=== PATIENT | male | born 1965 | race Caucasian/White ===

== ENCOUNTER 2024-04-25 13:46 | Inpatient (IN) | payer BC ==
[~2024-04-25] VITALS: Ht 190.5 cm; Wt 79.5 kg
[2024-04-25] MEDS: normal saline 1000ml 1,000 ML IV SCH (01:00)
[2024-04-25 20:08] LABS: BASOPHILS % (AUTO) 0.1 % (0-1); EOSINOPHILS % (AUTO) 0 % (0-6); HEMATOCRIT 30.5 % (42.0-52.0); HEMOGLOBIN 9.4 g/dl (14.0-17.9); LYMPHOCYTES % (AUTO) 8.6 % (21-51); MEAN CORPUSCULAR HEMOGLOBIN 25.3 PG (27.0-31.0); MEAN CORPUSCULAR HGB CONC 30.8 g/dL (33.0-36.5); MEAN CORPUSCULAR VOLUME 82.1 FL (78-98); MEAN PLATELET VOLUME 6.6 FL (7.4-10.4); MONOCYTES # (AUTO) 0.7 X10'3 (0-0.9); MONOCYTES % (AUTO) 6.2 % (2-12); NEUTROPHILS # (AUTO) 10.1 X10'3 (1.8-7.7); NEUTROPHILS % (AUTO) 85.1 % (42-75); PLATELET COUNT 305 X10'3 (140-440); RED BLOOD COUNT 3.71 X10'6 (4.70-6.10); RED CELL DISTRIBUTION WIDTH 20.5 % (11.5-14.5); WHITE BLOOD COUNT 11.9 X10'3 (4.5-11.0)
[2024-04-25 20:27] LABS: APTT 26 SECONDS (22-32); D-DIMER 6.05 MG/L FEU (0-0.50); PROTHROMBIN TIME 10.6 SECONDS (9.0-12.0)
[2024-04-25 20:29] LABS: ALBUMIN 1.5 G/DL (3.4-5.0); ANION GAP 5 (8-16); BLOOD UREA NITROGEN 10 MG/DL (7-18); CALCIUM 8.1 MG/DL (8.5-10.1); CHLORIDE 101 MMOL/L (99-107); CREATININE 0.91 MG/DL (0.60-1.10); GLUCOSE 99 MG/DL (70-104); POTASSIUM 3.9 MMOL/L (3.5-5.1); PRO BRAIN NATRIURETIC PEPTIDE 1913 PG/ML (0-125); SODIUM 132 MMOL/L (135-145); TOTAL CARBON DIOXIDE 25.8 MMOL/L (24-32); eCRCL 97 ML/MIN; eGFR 85 ML/MIN
[2024-04-25] MEDS ORDERED: iohexol 350MG/ML 100ml bottle IV ONE (20:40)
[2024-04-25 21:08] LABS: OCCULT BLOOD STOOL POSITIVE (Neg)
[2024-04-25 21:47] LABS: ANISOCYTOSIS 3+; HYPOCHROMASIA 1+; PLATELET ESTIMATE NORMAL
[2024-04-25] MEDS ORDERED: heparin 10,000 units/1 ML INJ IV ONE (22:30)
[2024-04-25 22:58] LABS: BILIRUBIN,URINE NEGATIVE (Neg); CLARITY,URINE CLOUDY (Clear); COLOR,URINE YELLOW (Yellow); GLUCOSE, URINE NEGATIVE (Neg); KETONES,URINE NEGATIVE (Neg); LEUKOCYTE ESTERASE ,URINE MODERATE (Neg); NITRITES, URINE POSITIVE (Neg); OCCULT BLOOD,URINE LARGE (Neg); PH,URINE 6.5 (4.8-8.0); PROTEIN,URINE 100 mg/dl (Neg); UROBILINOGEN,URINE 0.2 E.U/dL (0.2-1.0)
[2024-04-25 23:00] LABS: UA COLLECTION TYPE CLN CATCH MIDSTREAM
[2024-04-25 23:10] LABS: BACTERIA,URINE 4+ /HPF (Neg); SQUAMOUS EPITHELIAL CELL,UR FEW /LPF (FEW); WBC,URINE TNTC /HPF (0-4)
[2024-04-25 23:13] LABS: MUCUS STRANDS NONE SEEN /LPF (Neg); RBC,URINE 50-100 /HPF (0-2)
[2024-04-25 23:14] LABS: WBC CLUMPS,URINE MANY /HPF (NEGATIVE)
[2024-04-25] MEDS ORDERED: magnesium 2GM in 50ml NS 50 ML IV PRN (23:20)
[2024-04-25] MEDS ORDERED: magnesium 4gm in 100ml NS 100 ML IV PRN (23:20)
[2024-04-25] MEDS ORDERED: acetaminophen 325mg tablet PO PRN (23:20)
[2024-04-25] MEDS ORDERED: magnesium Cl slow-release 64mg tablet PO PRN (23:20)
[2024-04-25] MEDS ORDERED: potassium Cl 20 mEq SR tablet PO PRN (23:20)
[2024-04-25] MEDS: PERFLUTREN PROTEIN-A MICROSPHR (Optison) 0.22 MG/ML 3ML VIAL IV ONE (23:54)
[2024-04-26] VITALS (8 sets, daily range): BP systolic 92–109; BP diastolic 51–89; PULSE 76–90; RESP 16–25; TEMP 96.5–100.9; O2SAT 93–100
[2024-04-26] MEDS: heparin 10,000 units/1 ML INJ IV ONE (00:33)
[2024-04-26] MEDS: heparin 25,000 UNIT/250ml bag 250 ML IV PRN (00:36)
[2024-04-26] MEDS: MESSAGE TO NURSING IV ONE ×4 (00:37→21:30)
[2024-04-26 07:20] LABS: BASOPHILS # (AUTO) 0.1 X10'3 (0-0.2); BASOPHILS % (AUTO) 0.5 % (0-1); EOSINOPHILS % (AUTO) 0.4 % (0-6); HEMATOCRIT 26.8 % (42.0-52.0); HEMOGLOBIN 8.3 g/dl (14.0-17.9); LYMPHOCYTES # (AUTO) 1.7 X10'3 (1.1-4.8); LYMPHOCYTES % (AUTO) 15.4 % (21-51); MEAN CORPUSCULAR HEMOGLOBIN 25.1 PG (27.0-31.0); MEAN CORPUSCULAR HGB CONC 30.9 g/dL (33.0-36.5); MEAN CORPUSCULAR VOLUME 81.1 FL (78-98); MEAN PLATELET VOLUME 6.9 FL (7.4-10.4); MONOCYTES # (AUTO) 0.8 X10'3 (0-0.9); MONOCYTES % (AUTO) 7.7 % (2-12); NEUTROPHILS # (AUTO) 8.1 X10'3 (1.8-7.7); PLATELET COUNT 282 X10'3 (140-440); RED CELL DISTRIBUTION WIDTH 20.9 % (11.5-14.5); WHITE BLOOD COUNT 10.7 X10'3 (4.5-11.0)
[2024-04-26 07:31] LABS: % IRON SATURATION 7 % (11-46); IRON 8 UG/DL (53-167); TOTAL IRON BINDING CAPACITY 113 UG/DL (259-388)
[2024-04-26 07:42] LABS: MAGNESIUM 2.1 MG/DL (1.5-2.4); POTASSIUM 3.5 MMOL/L (3.5-5.1)
[2024-04-26] MEDS: K and/or MAG REPLACEMENT MC SCH (08:00)
[2024-04-26] MEDS: heparin 10,000 units/1 ML INJ IV PRN (08:07)
[2024-04-26] MEDS: furosemide 10 MG/1 ML 10ml inj IV SCH (08:13)
[2024-04-26] MEDS: CefTRIAXone/D5W-Rocephin 1gm 50 ML IV SCH (08:18)
[2024-04-26 10:50] LABS: URINE AMPHETAMINE SCREEN NEGATIVE (Neg); URINE BARBITUATE SCREEN NEGATIVE (Neg); URINE BENZODIAZEPINES SCREEN NEGATIVE (Neg); URINE CANNABINOID SCREEN NEGATIVE (Neg); URINE COCAINE SCREEN NEGATIVE (Neg); URINE METHADONE SCREEN NEGATIVE (Neg); URINE PHENCYCLIDINE SCREEN NEGATIVE (Neg)
[2024-04-27] VITALS (8 sets, daily range): BP systolic 97–110; BP diastolic 52–84; PULSE 75–86; RESP 11–18; TEMP 97.4–100.2; O2SAT 94–98
[2024-04-27 02:31] LABS: BASOPHILS % (AUTO) 0.2 % (0-1); EOSINOPHILS % (AUTO) 0 % (0-6); HEMATOCRIT 24.3 % (42.0-52.0); HEMOGLOBIN 7.4 g/dl (14.0-17.9); LYMPHOCYTES # (AUTO) 1.9 X10'3 (1.1-4.8); LYMPHOCYTES % (AUTO) 15.9 % (21-51); MEAN CORPUSCULAR HEMOGLOBIN 24.9 PG (27.0-31.0); MEAN CORPUSCULAR HGB CONC 30.4 g/dL (33.0-36.5); MEAN CORPUSCULAR VOLUME 81.8 FL (78-98); MEAN PLATELET VOLUME 6.7 FL (7.4-10.4); MONOCYTES % (AUTO) 8.5 % (2-12); NEUTROPHILS # (AUTO) 8.9 X10'3 (1.8-7.7); NEUTROPHILS % (AUTO) 75.4 % (42-75); PLATELET COUNT 270 X10'3 (140-440); RED BLOOD COUNT 2.97 X10'6 (4.70-6.10); RED CELL DISTRIBUTION WIDTH 20.7 % (11.5-14.5); WHITE BLOOD COUNT 11.8 X10'3 (4.5-11.0)
[2024-04-27 02:39] LABS: MAGNESIUM 1.8 MG/DL (1.5-2.4); POTASSIUM 3.4 MMOL/L (3.5-5.1)
[2024-04-27] MEDS: MESSAGE TO NURSING IV ONE ×3 (02:50→21:25)
[2024-04-27] MEDS: potassium Cl 20 mEq SR tablet PO PRN (04:08)
[2024-04-27 15:34] LABS: % FREE PSA 8.6 % (.); CARCINOEMBRYONIC ANTIGEN 9.4 ng/mL (0.0-4.7); PROSTATE SPECIFIC AG, SERUM 1.4 ng/mL (0.0-4.0); PSA, FREE 0.12 ng/mL
[2024-04-27] MEDS: PEG 3350/Na sulf,bicarb,Cl/KCl oral sol 4 liter bottle PO ONE (16:53)
[2024-04-27] MEDS: HYDROcodone/acetaminophen 5mg/325mg tablet PO PRN (21:13)
[2024-04-28] VITALS (8 sets, daily range): BP systolic 98–117; BP diastolic 61–73; PULSE 65–101; RESP 13–19; TEMP 97.4–98; O2SAT 96–100
[2024-04-28] MEDS: ondansetron/PF 4mg/2ml inj IV PRN (03:43)
[2024-04-28 04:10] LABS: BASOPHILS % (AUTO) 0.1 % (0-1); EOSINOPHILS % (AUTO) 0.2 % (0-6); HEMATOCRIT 26.9 % (42.0-52.0); LYMPHOCYTES # (AUTO) 2.1 X10'3 (1.1-4.8); MEAN CORPUSCULAR HEMOGLOBIN 24.4 PG (27.0-31.0); MEAN CORPUSCULAR HGB CONC 29.7 g/dL (33.0-36.5); MEAN CORPUSCULAR VOLUME 81.9 FL (78-98); MEAN PLATELET VOLUME 6.6 FL (7.4-10.4); MONOCYTES # (AUTO) 1.1 X10'3 (0-0.9); MONOCYTES % (AUTO) 8.6 % (2-12); NEUTROPHILS # (AUTO) 9.1 X10'3 (1.8-7.7); NEUTROPHILS % (AUTO) 74.1 % (42-75); PLATELET COUNT 307 X10'3 (140-440); RED BLOOD COUNT 3.29 X10'6 (4.70-6.10); RED CELL DISTRIBUTION WIDTH 20.6 % (11.5-14.5); WHITE BLOOD COUNT 12.3 X10'3 (4.5-11.0)
[2024-04-28 04:29] LABS: MAGNESIUM 1.9 MG/DL (1.5-2.4)
[2024-04-28] MEDS: MESSAGE TO NURSING IV ONE ×3 (05:07→21:20)
[2024-04-28 05:31] LABS: ALBUMIN 1.2 G/DL (3.4-5.0); ANION GAP 9 (8-16); BLOOD UREA NITROGEN 9 MG/DL (7-18); BUN/CREATININE RATIO 12.2 (10.0-20.0); CALCIUM 7.7 MG/DL (8.5-10.1); CHLORIDE 101 MMOL/L (99-107); CREATININE 0.74 MG/DL (0.60-1.10); GLUCOSE 101 MG/DL (70-104); POTASSIUM 3.2 MMOL/L (3.5-5.1); SODIUM 136 MMOL/L (135-145); TOTAL CARBON DIOXIDE 26.4 MMOL/L (24-32); eCRCL 119 ML/MIN; eGFR > 90 ML/MIN
[2024-04-28 09:24] LABS: C DIFF ANTIGEN NEGATIVE (NEGATIVE); C DIFF SPECIMEN=DIARRHEA? ACCEPTABLE; C DIFFICILE TOXINS A&B NEGATIVE (Neg)
[2024-04-28] MEDS: potassium Cl 40MEQ/1/2NS 520ml 520 ML IV PRN (15:21)
[2024-04-28] MEDS: sennosides/docusate sodium tablet PO SCH (22:23)
[2024-04-28] MEDS: magnesium citrate 296ml oral solution PO ONE (22:23)
[2024-04-28] MEDS: metoclopramide 5 mg/ml inj IV ONE (22:23)
[2024-04-28] MEDS: polyethylene glycol 3350 17gm powd pack PO SCH (23:42)
[2024-04-29] VITALS (7 sets, daily range): BP systolic 94–127; BP diastolic 60–73; PULSE 72–79; RESP 12–17; TEMP 97–98; O2SAT 92–98
[2024-04-29 03:49] LABS: BASOPHILS % (AUTO) 0.2 % (0-1); EOSINOPHILS % (AUTO) 0.1 % (0-6); HEMOGLOBIN 8.4 g/dl (14.0-17.9); LYMPHOCYTES # (AUTO) 1.5 X10'3 (1.1-4.8); LYMPHOCYTES % (AUTO) 15.4 % (21-51); MEAN CORPUSCULAR HGB CONC 30.9 g/dL (33.0-36.5); MEAN PLATELET VOLUME 6.8 FL (7.4-10.4); MONOCYTES # (AUTO) 0.8 X10'3 (0-0.9); MONOCYTES % (AUTO) 8.3 % (2-12); NEUTROPHILS # (AUTO) 7.2 X10'3 (1.8-7.7); PLATELET COUNT 355 X10'3 (140-440); RED BLOOD COUNT 3.34 X10'6 (4.70-6.10); RED CELL DISTRIBUTION WIDTH 20.3 % (11.5-14.5); WHITE BLOOD COUNT 9.6 X10'3 (4.5-11.0)
[2024-04-29 03:59] LABS: ALBUMIN 1.2 G/DL (3.4-5.0); ANION GAP 7 (8-16); BLOOD UREA NITROGEN 9 MG/DL (7-18); BUN/CREATININE RATIO 9.8 (10.0-20.0); CALCIUM 8.1 MG/DL (8.5-10.1); CHLORIDE 101 MMOL/L (99-107); CREATININE 0.92 MG/DL (0.60-1.10); GLUCOSE 119 MG/DL (70-104); MAGNESIUM 2.3 MG/DL (1.5-2.4); SODIUM 138 MMOL/L (135-145); TOTAL CARBON DIOXIDE 30.4 MMOL/L (24-32); eCRCL 96 ML/MIN; eGFR 84 ML/MIN
[2024-04-29 04:07] LABS: POTASSIUM 2.4 MMOL/L (3.5-5.1)
[2024-04-29] MEDS ORDERED: potassium Cl 20 mEq SR tablet PO PRN (04:10)
[2024-04-29] MEDS ORDERED: magnesium 2GM in 50ml NS 50 ML IV PRN (04:10)
[2024-04-29] MEDS ORDERED: magnesium Cl slow-release 64mg tablet PO PRN (04:10)
[2024-04-29] MEDS ORDERED: magnesium 4gm in 100ml NS 100 ML IV PRN (04:10)
[2024-04-29] MEDS: MESSAGE TO NURSING IV ONE ×3 (04:12→17:48)
[2024-04-29] MEDS: potassium Cl 40MEQ/1/2NS 520ml 520 ML IV PRN (04:32)
[2024-04-29] MEDS: magnesium citrate 296ml oral solution PO ONE ×2 (06:00→19:28)
[2024-04-29] MEDS: K and/or MAG REPLACEMENT MC SCH (08:00)
[2024-04-29] MEDS: potassium Cl 20 mEq SR tablet PO PRN (17:35)
[2024-04-29] MEDS ORDERED: magnesium citrate 296ml oral solution PO ONE (20:00)
[2024-04-30 00:43] LABS: ALBUMIN 1.2 G/DL (3.4-5.0); ANION GAP 5 (8-16); BLOOD UREA NITROGEN 6 MG/DL (7-18); BUN/CREATININE RATIO 6.8 (10.0-20.0); CALCIUM 7.7 MG/DL (8.5-10.1); CHLORIDE 102 MMOL/L (99-107); CREATININE 0.88 MG/DL (0.60-1.10); GLUCOSE 103 MG/DL (70-104); SODIUM 135 MMOL/L (135-145); TOTAL CARBON DIOXIDE 28.2 MMOL/L (24-32); eCRCL 100 ML/MIN; eGFR 88 ML/MIN
[2024-04-30 01:08] LABS: POTASSIUM 2.8 MMOL/L (3.5-5.1)
[2024-04-30] MEDS: MESSAGE TO NURSING IV ONE ×4 (01:36→22:15)
[2024-04-30 02:00] VITALS: BP 118/65; PULSE 65; RESP 17; TEMP 97.2; O2SAT 96
[2024-04-30 06:00] VITALS: BP 107/63; PULSE 62; RESP 16; TEMP 97.8; O2SAT 100
[2024-04-30 07:14] LABS: BASOPHILS % (AUTO) 0.2 % (0-1); EOSINOPHILS % (AUTO) 0.2 % (0-6); HEMATOCRIT 27.5 % (42.0-52.0); HEMOGLOBIN 8.4 g/dl (14.0-17.9); LYMPHOCYTES # (AUTO) 1.5 X10'3 (1.1-4.8); LYMPHOCYTES % (AUTO) 19.1 % (21-51); MEAN CORPUSCULAR HEMOGLOBIN 24.8 PG (27.0-31.0); MEAN CORPUSCULAR HGB CONC 30.5 g/dL (33.0-36.5); MEAN CORPUSCULAR VOLUME 81.3 FL (78-98); MEAN PLATELET VOLUME 6.5 FL (7.4-10.4); MONOCYTES # (AUTO) 0.7 X10'3 (0-0.9); MONOCYTES % (AUTO) 8.6 % (2-12); NEUTROPHILS # (AUTO) 5.7 X10'3 (1.8-7.7); NEUTROPHILS % (AUTO) 71.9 % (42-75); PLATELET COUNT 348 X10'3 (140-440); RED BLOOD COUNT 3.39 X10'6 (4.70-6.10); RED CELL DISTRIBUTION WIDTH 19.9 % (11.5-14.5)
[2024-04-30] MEDS: magnesium citrate 296ml oral solution PO ONE (07:35)
[2024-04-30 11:00] VITALS: BP 117/72; PULSE 67; RESP 15; TEMP 97.5; O2SAT 97
[2024-04-30] MEDS: levoFLOXACIN 500mg tablet PO SCH (12:03)
[2024-04-30] MEDS: polyethylene glycol 3350 17gm powd pack PO ONE (14:55)
[2024-04-30] MEDS ORDERED: magnesium citrate 296ml oral solution PO PRN (14:55)
[2024-04-30 15:00] VITALS: BP 127/76; PULSE 68; RESP 16; TEMP 98; O2SAT 99
[2024-04-30] MEDS: pantoprazole 40mg Tablet.DR PO SCH (15:32)
[2024-04-30] MEDS: mag hydrox/Alum hydrox/simeth 30ml oral suspension PO ONE (15:32)
[2024-04-30 18:00] VITALS: BP 113/72; PULSE 68; RESP 21; TEMP 97.5; O2SAT 94
[2024-04-30] MEDS: PEG 3350/Na sulf,bicarb,Cl/KCl oral sol 4 liter bottle PO ONE (20:05)
[2024-04-30 22:00] VITALS: BP 136/74; PULSE 77; RESP 14; TEMP 97.1; O2SAT 99
[2024-05-01] VITALS (11 sets, daily range): BP systolic 96–163; BP diastolic 44–89; PULSE 69–99; RESP 11–19; TEMP 97.1–98.6; O2SAT 93–100
[2024-05-01 09:36] LABS: ALBUMIN 1.4 G/DL (3.4-5.0); ANION GAP 7 (8-16); BLOOD UREA NITROGEN 9 MG/DL (7-18); BUN/CREATININE RATIO 8.9 (10.0-20.0); CALCIUM 7.8 MG/DL (8.5-10.1); CHLORIDE 98 MMOL/L (99-107); CREATININE 1.01 MG/DL (0.60-1.10); GLUCOSE 104 MG/DL (70-104); POTASSIUM 3.8 MMOL/L (3.5-5.1); SODIUM 133 MMOL/L (135-145); TOTAL CARBON DIOXIDE 27.6 MMOL/L (24-32); eCRCL 88 ML/MIN; eGFR 75 ML/MIN
[2024-05-01] MEDS: MESSAGE TO NURSING IV ONE ×3 (10:20→21:15)
[2024-05-01] MEDS ORDERED: fentaNYL/PF 50MCG/1 ML 2ML syringe ONE (16:59)
[2024-05-01] MEDS ORDERED: MIDAZolam 1 MG/ML 5ML VIAL ONE (17:00)
[2024-05-02 02:00] VITALS: BP 117/73; PULSE 75; RESP 12; TEMP 98.5; O2SAT 98
[2024-05-02 05:58] LABS: ALBUMIN 1.2 G/DL (3.4-5.0); ANION GAP 8 (8-16); BLOOD UREA NITROGEN 10 MG/DL (7-18); BUN/CREATININE RATIO 8.8 (10.0-20.0); CALCIUM 7.6 MG/DL (8.5-10.1); CHLORIDE 99 MMOL/L (99-107); CREATININE 1.13 MG/DL (0.60-1.10); GLUCOSE 75 MG/DL (70-104); POTASSIUM 3.2 MMOL/L (3.5-5.1); SODIUM 133 MMOL/L (135-145); TOTAL CARBON DIOXIDE 25.9 MMOL/L (24-32); eCRCL 78 ML/MIN; eGFR 66 ML/MIN
[2024-05-02 06:03] LABS: HEMATOCRIT 26.4 % (42.0-52.0); HEMOGLOBIN 8.2 g/dl (14.0-17.9); MEAN CORPUSCULAR HEMOGLOBIN 25.4 PG (27.0-31.0); MEAN CORPUSCULAR HGB CONC 30.9 g/dL (33.0-36.5); MEAN PLATELET VOLUME 7.6 FL (7.4-10.4); PLATELET COUNT 325 X10'3 (140-440); RED BLOOD COUNT 3.22 X10'6 (4.70-6.10); RED CELL DISTRIBUTION WIDTH 20.2 % (11.5-14.5); WHITE BLOOD COUNT 9.8 X10'3 (4.5-11.0)
[2024-05-02 07:42] VITALS: BP 113/63; PULSE 70; RESP 10; TEMP 98.3; O2SAT 100
[2024-05-02 08:00] VITALS: RESP 10; O2SAT 100
[2024-05-02] MEDS ORDERED: magnesium Cl slow-release 64mg tablet PO PRN (08:20)
[2024-05-02] MEDS ORDERED: magnesium 2GM in 50ml NS 50 ML IV PRN (08:20)
[2024-05-02] MEDS ORDERED: magnesium 4gm in 100ml NS 100 ML IV PRN (08:20)
[2024-05-02] MEDS ORDERED: potassium Cl 20 mEq SR tablet PO PRN (08:20)
[2024-05-02] MEDS ORDERED: potassium Cl 40MEQ/1/2NS 520ml 520 ML IV PRN (08:20)
[2024-05-02] MEDS: potassium Cl 20 mEq SR tablet PO PRN (09:04)
[2024-05-02 11:00] VITALS: BP 121/69; PULSE 66; RESP 15; TEMP 97.8; O2SAT 98
[2024-05-02 12:44] VITALS: RESP 16
[2024-05-02] MEDS ORDERED: FURO-150 PO (13:52)
[2024-05-02] MEDS ORDERED: LEVO-65 PO (13:52)
[2024-05-02] MEDS ORDERED: APIX5TAB3 PO (14:01)
[2024-05-02] MEDS ORDERED: K and/or MAG REPLACEMENT MC SCH (20:00)
== END 2024-05-02 15:35 | disposition home or self-care (01) | DRG 175 ==
LOC: ER 13:47 → ED HOLD 23:20 → PCU 3S 04-26 00:59
PROVIDERS: ADMIT Internal Medicine; ATTEND Internal Medicine
PROC: B32T1ZZ Computerized Tomography (CT Scan) of Left Pulmonary Artery using Low Osmolar Contrast (ICD-10-PCS; principal; 2024-04-25)
PROC: B3201ZZ Computerized Tomography (CT Scan) of Thoracic Aorta using Low Osmolar Contrast (ICD-10-PCS; 2024-04-25)
PROC: B32S1ZZ Computerized Tomography (CT Scan) of Right Pulmonary Artery using Low Osmolar Contrast (ICD-10-PCS; 2024-04-25)
PROC: 0DBK8ZZ Excision of Ascending Colon, Via Natural or Artificial Opening Endoscopic (ICD-10-PCS; 2024-05-01)
PROC: 0DBM8ZZ Excision of Descending Colon, Via Natural or Artificial Opening Endoscopic (ICD-10-PCS; 2024-05-01)
PROC: 0DBH8ZZ Excision of Cecum, Via Natural or Artificial Opening Endoscopic (ICD-10-PCS; 2024-05-01)
PROC: 0DBP8ZX Excision of Rectum, Via Natural or Artificial Opening Endoscopic, Diagnostic (ICD-10-PCS; 2024-05-01)
PROC: 0DBQ8ZX Excision of Anus, Via Natural or Artificial Opening Endoscopic, Diagnostic (ICD-10-PCS; 2024-05-01)
DX: I26.99 Other pulmonary embolism without acute cor pulmonale (principal); K57.31 Diverticulosis of large intestine without perforation or abscess with bleeding; I50.30 Unspecified diastolic (congestive) heart failure; N39.0 Urinary tract infection, site not specified; C21.0 Malignant neoplasm of anus, unspecified; I82.413 Acute embolism and thrombosis of femoral vein, bilateral; I82.433 Acute embolism and thrombosis of popliteal vein, bilateral; I82.441 Acute embolism and thrombosis of right tibial vein; D50.0 Iron deficiency anemia secondary to blood loss (chronic); B96.89 Other specified bacterial agents as the cause of diseases classified elsewhere; K64.9 Unspecified hemorrhoids; E87.5 Hyperkalemia; Z87.891 Personal history of nicotine dependence; K63.5 Polyp of colon; Z79.01 Long term (current) use of anticoagulants
CPT/HCPCS: 36415; 45380; 45385; 71045; 71275; 80048; 80305; 81001; 82272; 82378; 82607; 82728; 83540; 83550; 83735; 83880; 84132; 84153; 84154; 84484; 85008; 85025; 85027; 85379; 85610; 85730; 86885; 86900; 86901; 87077; 87081; 87088; 87186; 87324; 87449; 93005; 93306; 93970; 97110; 97161; 97530; 99152; 99153; 99285; A4615; A4620; A6449; C1889; G0378; J0696; J1644; J1940; J2250; J2405; J2765; J3010; J3480; J3490; J7030; Q9967